=== PATIENT | female | born 1950 | race Caucasian/White ===

== ENCOUNTER 2017-11-15 00:07 | Emergency (ER) | payer OTHER ==
[~2017-11-15] VITALS: Ht 157.5 cm; Wt 54.4 kg
[2017-11-15] MEDS ORDERED: BOOSTRIX (00:09)
[2017-11-15] MEDS ORDERED: DUI500 PO (05:20)
== END 2017-11-15 05:41 | disposition home or self-care (01) ==
LOC: ER 00:07
DX: S01.02XA Laceration with foreign body of scalp, initial encounter (principal); W01.0XXA Fall on same level from slipping, tripping and stumbling without subsequent striking against object, initial encounter; Y93.89 Activity, other specified; Y92.010 Kitchen of single-family (private) house as the place of occurrence of the external cause; Y99.8 Other external cause status